=== PATIENT | female | born 1960 | race Caucasian/White ===

== ENCOUNTER → 2020-09-07 | Outpatient (CLI) | payer OTHER ==
--- NOTE | 2020-09-07 15:50 | MR ---
EXAMINATION TYPE: MR shoulder RT wo con DATE OF EXAM: 09/07/2020 COMPARISON: None HISTORY: Right shoulder pain for 1 year, limited range of motion. Technique: Multiplanar, multiecho imaging on a 3.0 Jennifer magnet is performed through the shoulder. Findings: Long head of the biceps tendon is within the bicipital groove. Subchondral cysts are presen t near the insertion of the supraspinatus tendon. No significant joint effusion is evident.Glenoid labrum as visualized on this noncontrast study appea rs intact. Rotator cuff tendons are evaluated. Some minimal signal transverses the supraspinatus tendon suggest jie for small perforation. The acromioclavicular junction is hypertrophied which can contribute to i mpingement syndrome. No joint effusion is evident. IMPRESSIONS: 1. Small perforation of the distal supraspinatus tendon appears to be present. No retraction or muscl e atrophy is evident.
== END | disposition home or self-care (01) ==
LOC: RADMRIMAIN 11:10
PROVIDERS: ATTEND Orthopaedic Surgery
DX: M25.511 Pain in right shoulder (principal)